=== PATIENT | female | born 1975 | race American Indian/Alaskan Native ===

== ENCOUNTER 2016-12-24 08:40 | Day surgery (SDC) | payer OTHER ==
[~2016-12-24 08:40] MED LIST: NACL 0.9% 1000 ML 1,000 ML IV SCH; VANCOMYCIN/NS 1 GM/250 ML 1 GM/250 ML BAG IV NR
[2016-12-24 10:12] LABS: Basophils % (Auto) 0.5 % (0.0-1.8); Eosinophils % (Auto) 1.7 % (0.0-4.3); Hemoglobin 12.6 gm/dl (10.1-14.3); Mean Corpuscular HGB Conc 33 % (30-34); Mean Corpuscular Hemoglobin 30 pg (28-32); Mean Corpuscular Volume 91 fl (79-97); Platelet Count 252 K/mm3 (140-440); Red Blood Count 4.19 M/mm3 (3.65-5.03); Red Cell Distribution Width 15.4 % (13.2-15.2); White Blood Count 6.4 K/mm3 (4.5-11.0)
[2016-12-24 10:21] LABS: INR 0.96 (0.87-1.13); Partial Thromboplastin Time 31.1 Sec. (24.2-36.6)
[2016-12-24 10:22] LABS: Anion Gap 15 mmol/L; BUN/Creatinine Ratio 14; Blood Urea Nitrogen 11 mg/dL (7-17); Calcium 8.8 mg/dL (8.4-10.2); Carbon Dioxide 25 mmol/L (22-30); Chloride 102.9 mmol/L (98-107); Glucose 89 mg/dL (65-100); Potassium 4.1 mmol/L (3.6-5.0); Sodium 139 mmol/L (137-145)
[2016-12-24] MEDS ORDERED: TYLENOL PO ONE (11:00)
[2016-12-24] MEDS ORDERED: LYRICA PO ONE (11:00)
[2016-12-24] MEDS ORDERED: LEVAQUIN 500MG/100ML 500 MG/100 ML BAG IV NR (11:00)
[2016-12-24] MEDS ORDERED: HEPARIN/NS 5000 UNIT/500ML(CATH LAB) 500 ML IR ONE ×2 (11:06→12:15)
[2016-12-24] MEDS ORDERED: ZOFRAN ONE ×2 (11:07→12:09)
[2016-12-24] MEDS ORDERED: DILAUDID ONE (11:07)
[2016-12-24] MEDS ORDERED: TORADOL ONE ×3 (11:07→12:22)
[2016-12-24] MEDS ORDERED: HEPARIN 10,000 UNITS/10 ML ONE (11:07)
[2016-12-24] MEDS ORDERED: XYLOCAINE 2% INFILTRATI ONE (11:08)
[2016-12-24] MEDS: VERSED IV ONE ×4 (11:09→11:33)
[2016-12-24] MEDS ORDERED: CALAN ONE (11:20)
[2016-12-24] MEDS: SUBLIMAZE ONE ×3 (11:30→12:01)
[2016-12-24] MEDS: NITROGLYCERIN SYRINGE 3 ML ONE ×2 (11:33→11:35)
[2016-12-24] MEDS ORDERED: MORPHINE IV ONE (14:17)
--- NOTE | 2016-12-24 14:42 | Short Stay Summary ---
Short Stay Documentation Date of service: 12/24/16 - History Principal diagnosis: Uterine Fibroids H&P: obtained from office - Allergies and Medications Current Medications: Allergies Penicillins Allergy (Severe, Verified 12/24/16 10:42) RESPITATORY DISTRESS latex Allergy (Intermediate, Verified 12/24/16 10:42) Rash Home Medications Medication Instructions Recorded Confirmed Last Taken Type Docusate Sodium [Colace] 100 mg PO BID PRN #14 capsule 12/24/16 Unknown Rx Levofloxacin [Levaquin TAB] 500 mg PO QDAY #7 tablet 12/24/16 Unknown Rx Multivitamin/Iron/Folic Acid 1 tab PO DAILY 12/24/16 12/24/16 12/22/16 History [Centrum Adults Tablet] 1 tab Naproxen [Naprosyn] 500 mg PO BID #14 tablet 12/24/16 Unknown Rx Ondansetron [Zofran Odt] 4 mg PO Q6H PRN #24 tab.rapdis 12/24/16 Unknown Rx Promethazine HCl [Phenergan SUPPOS] 25 mg RC Q6H #30 supp.rect 12/24/16 Unknown Rx Thyroid,Pork [Nature-Throid] 65 mg PO DAILY 12/24/16 12/24/16 12/22/16 History 65mg oxyCODONE /ACETAMINOPHEN [Percocet 1 tab PO Q4HR PRN #30 tab 12/24/16 Unknown Rx 5/325] oxyCODONE ER [OxyCONTIN ER TAB] 10 mg PO Q12HR #14 tablet 12/24/16 Unknown Rx Active Medications Sodium Chloride (Nacl 0.9% 1000 Ml) 1,000 mls @ 42 mls/hr IV DIRECT ZARA - Brief post op/procedure progress note Date of procedure: 12/24/16 Pre-op diagnosis: uterine fibroids Post-op diagnosis: same Procedure: bilateral UAE Anesthesia: local Surgeon: KYLAH MEJIA Estimated blood loss: minimal Pathology: none Condition: stable - Disposition Condition at discharge: Good Disposition: [id number] TO HOME OR SELFCARE Short Stay Discharge Plan Activity: advance as tolerated Weight Bearing Status: Weight Bear as Tolerated Diet: regular Wound: keep clean and dry, per your surgeon's advice Forms: Work/School Excuse Out Patient, Post Arteriogram Instruct Prescriptions: Docusate Sodium [Colace] 100 mg PO BID PRN #14 capsule PRN Reason: Constipation Levofloxacin [Levaquin TAB] 500 mg PO QDAY #7 tablet Naproxen [Naprosyn] 500 mg PO BID #14 tablet Ondansetron [Zofran Odt] 4 mg PO Q6H PRN #24 tab.rapdis PRN Reason: Nausea oxyCODONE /ACETAMINOPHEN [Percocet 5/325] 1 tab PO Q4HR PRN #30 tab PRN Reason: Pain oxyCODONE ER [OxyCONTIN ER TAB] 10 mg PO Q12HR #14 tablet Promethazine HCl [Phenergan SUPPOS] 25 mg RC Q6H #30 supp.rect
--- NOTE | 2016-12-24 14:49 | Operative Report ---
Operative Report Operative Report: EXAM: BILATERAL UTERINE ARTERY EMBOLIZATION CLINICAL INDICATION: SYMPTOMATIC UTERINE FIBROIDS DATE: 12/24/2016 PROCEDURE: Following an explanation of the risks, benefits and alternatives; written informed consent was obtained. The patient was brought to the angiographic suite and placed in supine position on the examination table. Initial ultrasound evaluation of the wrist and is rated widely patent radial artery. The left wrist was prepped and draped in the usual sterile fashion. 1 % lidocaine was used for anesthesia. Under ultrasound guidance, the left radial artery was cannulated with a renal half centimeter 21-gauge needle. A 0.018 guidewire was advanced centrally. The needle was removed and a 5 Guamanian low-profile sheath placed over the guidewire. A 4 Guamanian for Keeble catheter and 0.035 guidewire were then advanced centrally under fluoroscopy. Again that the guidewire and catheter were advanced into the abdominal aorta. Selective cannulation of the left common iliac artery was then performed. Angiography was performed for anatomic localization and demonstrated the origin of the right uterine artery. Selective cannulation of the anterior division of the internal iliac artery was performed. Additional angiographic imaging was obtained. Multiple obliquities were utilized in an attempt to identify the origin of the uterine artery. Ultimately, the uterine artery was cannulated proximally with the 4 Guamanian vertebral catheter and 0.035 guidewire. The vertebral catheter was then exchanged for a 5 [place]ian MPA catheter and the guidewire removed. Angiography performed to the MPA catheter demonstrated prompt opacification of the dominant right uterine artery. A renegade high flow microcatheter and GT glide advantage wire within utilized to cannulate the uterine artery into the horizontal portion. Angiography was performed which demonstrated prompt desiccation of the uterus and numerous uterine fibroids. There is nonvisualization of the cervical vaginal artery. A decision was made to perform embolization at this point. A total of 2 vials of 500-700 embosphere's with a deployed under fluoroscopy through the microcatheter. Postembolization imaging demonstrated stasis of flow and vascular pruning. Microcatheter and micro-guidewire were removed and the 5 Guamanian MPA catheter withdrawn into the distal abdominal aorta. 0.035 guidewire was advanced through the MPA catheter and selective cannulation of the left common iliac artery was then performed. Angiography in the left common iliac artery demonstrates prompt opacification of the anterior posterior divisions. The uterine artery is identified. The catheter and guidewire were advanced into the anterior division and additional angiographic imaging obtained for anatomic localization. The guidewire was easily advanced into the left uterine artery and the cathetered bands to the ostium of the left uterine artery. The guidewire was then removed and the renegade high flow microcatheter and microguidewire within used to cannulate into the horizontal portion of the left uterine artery. Angiography was performed which demonstrates less opacification of the uterus from the nondominant left uterine artery. The cervical vaginal artery was not visualized. An pulsation was performed from this point using a total of 1-3/4 vials of 500 700 embosphere's which were deployed under fluoroscopy through the microcatheter. Postembolization imaging demonstrated complete stasis of flow and appropriate vascular pruning. At this point, the catheters and guidewires were removed and hemostasis achieved at the left wrist using manual compression. A sterile dressing was then applied. The patient tolerated the procedure well. There were no immediate post procedure complications. Conscious sedation was performed of the guidance of radiologic nursing. Continuous cardiopulmonary monitoring was performed. IMPRESSION: 1) Embolization of the right uterine artery using 2 vials of 500- 700 Embosphere's. 2) Embolization of the left uterine artery using 2 vials of 500-700 Embospheres.
[2016-12-24 16:09] VITALS: BP 109/64
--- NOTE | 2016-12-28 11:50 | Vascular Lab Report ---
MISCELLANEOUS VESSEL IDENTIFICATION: COMMENTS ON THE SCAN: The left radial artery was identified and under real-time ultrasound guidance was cannulated. IMPRESSION: Successful ultrasound guided arterial cannulation.
== END 2016-12-24 16:25 | disposition home or self-care (01) ==
LOC: CATHLABREC 08:40
PROVIDERS: ATTEND Radiology Diagnostic Radiology
DX: D25.0 Submucous leiomyoma of uterus (principal); J45.909 Unspecified asthma, uncomplicated; Z79.01 Long term (current) use of anticoagulants; Z79.899 Other long term (current) drug therapy; Z88.0 Allergy status to penicillin; Z91.040 Latex allergy status; Z80.9 Family history of malignant neoplasm, unspecified
CPT/HCPCS: 36415; 37243; 76937; 80048; 81025; 85025; 85610; 85730; 96374; 99156; 99157; C1769; C1887; C1894; J1170; J1644; J1885; J1956; J2250; J2270; J2405; J3010; J7030; Q9967